=== PATIENT | male | born 1975 | race Caucasian/White ===

== ENCOUNTER 2017-10-01 19:57 | Emergency (ER) | payer OTHER | END 2017-10-02 01:31 | disposition home or self-care (01) | LOC: FTE 10-02 01:31 | DX: M25.511 Pain in right shoulder (principal); I10 Essential (primary) hypertension; F17.210 Nicotine dependence, cigarettes, uncomplicated | CPT/HCPCS: 73000; 73030-RT; 99283-25 ==

== ENCOUNTER 2018-01-12 08:05 | Emergency (ER) | payer OTHER ==
[2018-01-12 09:03] LABS: ADD MAN DIFF? NO
[2018-01-12 09:12] LABS: WHITE BLOOD COUNT 7.9 10^3/ul (4.8-10.8)
[2018-01-12 09:12] LABS: BASOPHILS % 0.4 % (0.0-2.0); EOSINOPHILS # 0.2 10^3/ul (0.0-0.5); EOSINOPHILS % 2.3 % (0.0-7.0); HEMATOCRIT 41.4 % (42.0-52.0); HEMOGLOBIN 13.2 g/dl (14.0-18.0); LYMPHOCYTES # 1.6 10^3/ul (0.8-2.9); LYMPHOCYTES % 20.1 % (15.0-51.0); MEAN CORPUSCULAR HEMOGLOBIN 29.4 pg (29.0-33.0); MEAN CORPUSCULAR HGB CONC 31.9 g/dl (32.0-37.0); MEAN CORPUSCULAR VOLUME 92.2 fl (82.0-101.0); MEAN PLATELET VOLUME 9.7 fl (7.4-10.4); MONOCYTE # 0.4 10^3/ul (0.3-0.9); MONOCYTES % 5.3 % (0.0-11.0); NEUTROPHIL # 5.7 10^3/ul (1.6-7.5); NEUTROPHILS % 71.6 % (39.0-77.0); PLATELET COUNT 322 10^3/UL (140-415); RED BLOOD COUNT 4.49 10^6/ul (4.70-6.10); RED CELL DISTRIBUTION WIDTH 13.3 % (11.5-14.5)
[2018-01-12 09:38] LABS: ALANINE AMINOTRANSFERASE 20 IU/L (13-69); ALBUMIN/GLOBULIN RATIO 1.48; ALKALINE PHOSPHATASE 70 IU/L (42-121); ANION GAP 16 (8-16); ASPARTATE AMINO TRANSFERASE 16 IU/L (15-46); BILIRUBIN,INDIRECT 0.2 mg/dl (0-1.1); BILIRUBIN,TOTAL 0.2 mg/dl (0.2-1.3); BLOOD UREA NITROGEN 17 mg/dl (7-20); CALCIUM 9.5 mg/dl (8.4-10.2); CARBON DIOXIDE 26 mmol/L (21-31); CHLORIDE 111 mmol/L (97-110); CREATININE 0.84 mg/dl (0.61-1.24); GLUCOSE 109 mg/dl (70-220); POTASSIUM 3.9 mmol/L (3.5-5.1); SODIUM 149 mmol/L (135-144); TOTAL PROTEIN 6.7 g/dl (6.1-8.1)
[2018-01-12 09:48] LABS: AMPHETAMINE/METHAMPHETAMINE NEGATIVE (NEGATIVE); BARBITURATES NEGATIVE (NEGATIVE); BENZODIAZEPINES POSITIVE (NEGATIVE); COCAINE NEGATIVE (NEGATIVE); OPIATES NEGATIVE (NEGATIVE)
[2018-01-12 09:49] LABS: CANNABINOIDS POSITIVE (NEGATIVE); ETHANOL < 10.0 mg/dl
[2018-01-12] MEDS: oxyCODONE (CR) 15 MG TAB [oxyCONTIN] PO (13:36)
[2018-01-12] MEDS: HYDROCODONE/APAP (10/325) TAB PO (20:09)
[2018-01-13] MEDS: DIAZEPAM 5 MG TAB PO ×2 (00:35→23:59)
[2018-01-13] MEDS: HYDROCODONE/APAP (5/325) TAB PO ×3 (06:47→18:21)
[2018-01-13] MEDS: HYDROCODONE/APAP (10/325) TAB PO (23:59)
[2018-01-14] MEDS: HYDROCODONE/APAP (5/325) TAB PO (08:24)
[2018-01-14 11:23] LABS: ADD UMIC NO; UR ASCORBIC ACID NEGATIVE (NEGATIVE); UR BILIRUBIN (Dip) NEGATIVE (NEGATIVE); UR BLOOD (Dip) NEGATIVE (NEGATIVE); UR CLARITY CLEAR (CLEAR); UR COLOR YELLOW (YELLOW); UR GLUCOSE (Dip) NEGATIVE (NEGATIVE); UR KETONES (Dip) NEGATIVE (NEGATIVE); UR LEUKOCYTE ESTERASE (Dip) NEGATIVE Leu/ul (NEGATIVE); UR NITRITE (Dip) NEGATIVE (NEGATIVE); UR SPECIFIC GRAVITY (Dip) 1.019 (1.003-1.030); UR TOTAL PROTEIN (Dip) NEGATIVE (NEGATIVE); UR UROBILINOGEN (Dip) NEGATIVE (NEGATIVE)
== END 2018-01-14 13:34 | disposition home or self-care (01) ==
LOC: E/R 01-14 13:34
DX: R45.851 Suicidal ideations (principal); G89.29 Other chronic pain; I10 Essential (primary) hypertension; Z76.5 Malingerer [conscious simulation]; Z87.891 Personal history of nicotine dependence
CPT/HCPCS: 80053; 80307; 81003; 85025; 99283

== ENCOUNTER 2018-01-18 00:37 | Emergency (ER) | payer OTHER ==
[2018-01-18] MEDS: traMADol 50 MG TAB PO (02:12)
== END 2018-01-18 02:15 | disposition home or self-care (01) ==
LOC: FTE 00:37
DX: K08.89 Other specified disorders of teeth and supporting structures (principal); M54.6 Pain in thoracic spine; I10 Essential (primary) hypertension; F17.210 Nicotine dependence, cigarettes, uncomplicated; Z72.89 Other problems related to lifestyle
CPT/HCPCS: 99283; Z7502

== ENCOUNTER 2019-04-08 03:10 | Emergency (ER) | payer OTHER ==
[2019-04-08] MEDS ORDERED: oxyCODONE (CR) 15 MG TAB [oxyCONTIN] PO (03:30)
[2019-04-08] MEDS: oxyCODONE 5 MG TAB PO (03:50)
== END 2019-04-08 03:45 | disposition left against medical advice (07) ==
LOC: E/R 03:45
DX: R51 Headache (principal); I10 Essential (primary) hypertension; F17.210 Nicotine dependence, cigarettes, uncomplicated; M79.601 Pain in right arm; M79.602 Pain in left arm
CPT/HCPCS: 99282; Z7502